=== PATIENT | female | born 1955 | race Caucasian/White ===

== ENCOUNTER → 2018-12-22 | Outpatient (CLI) | payer OTHER ==
[~2018-12-22] MED LIST: ALBU90I INH; ARIP10 PO; CEPH500 PO; CLIN150 PO; CONEST1.25 PO; CYCL10 PO; HYDACE5 PO; LEVSOD100 PO; MUPI2TC TOP; MUPI2TO TOP; NAPR500 PO; RXCLIN PO; SERT100 PO
== END | disposition home or self-care (01) ==
LOC: LAB EV 16:15 → LAB SHORT 16:15
DX: T14.8XXA Other injury of unspecified body region, initial encounter (principal)
CPT/HCPCS: 87081

== ENCOUNTER → 2021-12-22 | Outpatient (CLI) | payer OTHER ==
[2021-12-22 10:55] LABS: BASOPHILS ABSOLUTE AUTO 0.05 K/mm3 (0.00-0.23); BASOPHILS PERCENT AUTO 1 % (0-2); EOSINOPHILS ABSOLUTE AUTO 0.12 K/mm3 (0.00-0.68); EOSINOPHILS PERCENT AUTO 2 % (0-6); IMMATURE GRAN ABSOLUTE AUTO 0.03 K/mm3 (0.00-0.10); IMMATURE GRAN PERCENT AUTO 0 % (0-1); LYMPHOCYTES ABSOLUTE AUTO 2.36 K/mm3 (0.84-5.20); LYMPHOCYTES PERCENT AUTO 29 % (21-46); MONOCYTES ABSOLUTE AUTO 0.67 K/mm3 (0.16-1.47); MONOCYTES PERCENT AUTO 8 % (4-13); Mean Corpuscular HGB 27.7 pg (26.0-34.0); Mean Corpuscular HGB Conc 34.1 g/dL (31.5-36.5); Mean Corpuscular Volume 81 fL (80-100); Mean Platelet Volume 10.2 fL (9.1-12.4); NEUTROPHILS ABSOLUTE AUTO 5.04 K/mm3 (1.96-9.15); NEUTROPHILS PERCENT AUTO 61 % (41-73); Platelet Count 358 K/mm3 (150-400); RDW Coefficient Variation 13.6 % (11.7-14.2); RDW Standard Deviation 39.5 fL (35.1-46.3); Red Blood Cell Count 5.41 M/mm3 (3.80-5.20); White Blood Cell Count 8.27 K/mm3 (4.00-11.30)
[2021-12-22 11:32] LABS: Albumin, Blood 3.1 g/dL (3.4-5.0); Albumin/Globulin Ratio 0.7 (0.8-1.8); Bilirubin, Total 0.2 mg/dL (0.1-1.0); Bun/Creatinine Ratio 21.7 (12.0-20.0); Calcium, Blood 9.3 mg/dL (8.5-10.1); Creatinine, Blood 0.92 mg/dL (0.40-1.00); Globulin, Blood 4.2 g/dL (2.2-4.0); Potassium, Blood 3.7 mmol/L (3.5-5.5); Total Protein, Blood 7.3 g/dL (6.4-8.2)
== END | disposition home or self-care (01) ==
LOC: LAB 10:51 → LAB SHORT 10:51
PROVIDERS: Physician Assistant Medical
DX: R10.31 Right lower quadrant pain (principal)
CPT/HCPCS: 80053; 85025

== ENCOUNTER 2023-04-16 18:40 | Emergency (ER) | payer MEDICARE, OTHER ==
[~2023-04-16] VITALS: Ht 170.2 cm; Wt 81.7 kg
[2023-04-16 19:48] LABS: BASOPHILS ABSOLUTE AUTO 0.04 K/mm3 (0.00-0.23); BASOPHILS PERCENT AUTO 1 % (0-2); EOSINOPHILS ABSOLUTE AUTO 0.07 K/mm3 (0.00-0.68); EOSINOPHILS PERCENT AUTO 1 % (0-6); IMMATURE GRAN ABSOLUTE AUTO 0.05 K/mm3 (0.00-0.10); IMMATURE GRAN PERCENT AUTO 1 % (0-1); LYMPHOCYTES ABSOLUTE AUTO 1.77 K/mm3 (0.84-5.20); LYMPHOCYTES PERCENT AUTO 20 % (21-46); MONOCYTES ABSOLUTE AUTO 0.59 K/mm3 (0.16-1.47); MONOCYTES PERCENT AUTO 7 % (4-13); Mean Corpuscular HGB 27.8 pg (26.0-34.0); Mean Corpuscular HGB Conc 34.2 g/dL (31.5-36.5); Mean Corpuscular Volume 81 fL (80-100); Mean Platelet Volume 10.9 fL (9.1-12.4); NEUTROPHILS ABSOLUTE AUTO 6.31 K/mm3 (1.96-9.15); NEUTROPHILS PERCENT AUTO 71 % (41-73); Platelet Count 370 K/mm3 (150-400); RDW Coefficient Variation 13.2 % (11.7-14.2); RDW Standard Deviation 38.1 fL (35.1-46.3); Red Blood Cell Count 4.68 M/mm3 (3.80-5.20); White Blood Cell Count 8.83 K/mm3 (4.00-11.30)
[2023-04-16 20:07] LABS: Albumin, Blood 3.3 g/dL (3.4-5.0); Albumin/Globulin Ratio 0.8 (0.8-1.8); Bilirubin, Total 0.2 mg/dL (0.1-1.0); Bun/Creatinine Ratio 21.5 (12.0-20.0); Calcium, Blood 9.5 mg/dL (8.5-10.1); Creatinine, Blood 1.21 mg/dL (0.40-1.00); Globulin, Blood 4.1 g/dL (2.2-4.0); Potassium, Blood 4.2 mmol/L (3.5-5.5); Total Protein, Blood 7.4 g/dL (6.4-8.2)
[2023-04-16 20:31] LABS: International Normalized Ratio 0.94; Prothrombin Time Results 9.9 Sec (9.7-11.5)
[2023-04-16 21:14] VITALS: BP 184/113
[2023-04-16] MEDS ORDERED: Clopidogrel Bisulfate 75 MG Tab PO ONE (21:25)
[2023-04-16] MEDS ORDERED: Aspirin 325 MG Tab PO ONE (21:25)
== END 2023-04-16 21:46 | disposition left against medical advice (07) ==
LOC: ER 18:40
PROVIDERS: Student in an Organized Health Care Education/Training Program
DX: I63.9 Cerebral infarction, unspecified (principal); E11.9 Type 2 diabetes mellitus without complications; Z53.29 Procedure and treatment not carried out because of patient's decision for other reasons; F17.200 Nicotine dependence, unspecified, uncomplicated
CPT/HCPCS: 70450; 70496; 70498; 80053; 85025; 85610; 85730; 93005; 93010; 99284-25; A9270; Q9967

== ENCOUNTER 2023-04-17 09:17 | Emergency (ER) | payer MEDICARE, OTHER ==
[~2023-04-17] VITALS: Ht 170.2 cm; Wt 86.2 kg
[2023-04-17 09:54] VITALS: BP 171/89
[2023-04-17 10:27] LABS: BASOPHILS ABSOLUTE AUTO 0.03 K/mm3 (0.00-0.23); BASOPHILS PERCENT AUTO 0 % (0-2); EOSINOPHILS ABSOLUTE AUTO 0.09 K/mm3 (0.00-0.68); EOSINOPHILS PERCENT AUTO 1 % (0-6); Hematocrit 37.1 % (33.0-51.0); Hemoglobin 12.5 g/dL (11.5-16.0); IMMATURE GRAN ABSOLUTE AUTO 0.03 K/mm3 (0.00-0.10); IMMATURE GRAN PERCENT AUTO 0 % (0-1); LYMPHOCYTES PERCENT AUTO 15 % (21-46); MONOCYTES ABSOLUTE AUTO 0.44 K/mm3 (0.16-1.47); MONOCYTES PERCENT AUTO 4 % (4-13); Mean Corpuscular HGB 27.5 pg (26.0-34.0); Mean Corpuscular HGB Conc 33.7 g/dL (31.5-36.5); Mean Corpuscular Volume 82 fL (80-100); Mean Platelet Volume 11.1 fL (9.1-12.4); NEUTROPHILS ABSOLUTE AUTO 8.19 K/mm3 (1.96-9.15); NEUTROPHILS PERCENT AUTO 80 % (41-73); Platelet Count 347 K/mm3 (150-400); RDW Coefficient Variation 13.2 % (11.7-14.2); RDW Standard Deviation 38.5 fL (35.1-46.3); Red Blood Cell Count 4.54 M/mm3 (3.80-5.20); White Blood Cell Count 10.28 K/mm3 (4.00-11.30)
[2023-04-17 11:15] LABS: Albumin, Blood 3.2 g/dL (3.4-5.0); Albumin/Globulin Ratio 0.8 (0.8-1.8); Beta-hydroxybutyrate 1.7 mg/dL (0.2-2.8); Bilirubin, Total 0.3 mg/dL (0.1-1.0); Bun/Creatinine Ratio 28.8 (12.0-20.0); Calcium, Blood 9.4 mg/dL (8.5-10.1); Creatinine, Blood 0.77 mg/dL (0.40-1.00); Potassium, Blood 3.7 mmol/L (3.5-5.5); Total Protein, Blood 7.2 g/dL (6.4-8.2)
[2023-04-17 11:43] LABS: Source, Urine Clean Catch
[2023-04-17 11:46] LABS: Appearance, Urine Hazy (Clear); Bilirubin, Urine Neg (Neg); Blood, Urine 3+ (Neg); Color, Urine Yellow (P-Yellow); Glucose Qualitative, Urine 4+ (Neg); Ketones, Urine Neg (Neg); Leukocyte Esterase, Urine 2+ (Neg); Nitrite, Urine Neg (Neg); Protein, Urine 4+ (Neg); Urobilinogen, Urine NORM (Normal)
[2023-04-17 12:03] LABS: Bacteria Few /hpf; Squamous Epithelial Cells Few /hpf (Few)
== END 2023-04-17 12:37 | disposition left against medical advice (07) ==
LOC: ER 09:17
PROVIDERS: Physician Assistant
DX: I63.9 Cerebral infarction, unspecified (principal); R53.1 Weakness; Z88.2 Allergy status to sulfonamides; Z88.1 Allergy status to other antibiotic agents; E03.9 Hypothyroidism, unspecified; E78.5 Hyperlipidemia, unspecified; J45.909 Unspecified asthma, uncomplicated; F17.210 Nicotine dependence, cigarettes, uncomplicated
CPT/HCPCS: 80053; 81001; 82010; 83690; 85025; 87086; 93005; 93010; 99285-25

== ENCOUNTER → 2024-04-02 | Outpatient (CLI) | payer OTHER | LOC: LAB SHORT 13:32 → LAB 13:32 | DX: R82.998 Other abnormal findings in urine (principal) | CPT/HCPCS: 87086 ==

== ENCOUNTER 2024-12-01 06:03 | Day surgery (SDC) | payer OTHER ==
[2024-12-01] VITALS (13 sets, daily range): BP systolic 109–161; BP diastolic 60–89
[~2024-12-01] VITALS: Ht 170.2 cm; Wt 82.9 kg
[~2024-12-01 06:03] MED LIST changes: +ALBU90OI INH; +Amlodipine Bes2.5 MG PO; +INSULANPEN SC; +JARDIANCE10 MG PO; +METF500 PO; +SPIRIVA RESPIMAT4 G2 INH; +TRADJENTA5 MG PO; +ZESTRIL40 M1 PO
[2024-12-01] MEDS ORDERED: CeFAZolin Sodium 2,000 MG in NS 100 ML IV SCH ×2 (06:20→16:00)
[2024-12-01] MEDS ORDERED: Tranexamic Acid 100 ML IV SCH (06:20)
[2024-12-01] MEDS ORDERED: Ropivacaine 0.5% HCl/Pf 123.125 MG,EPINEPHrine HCL 0.25 MG,Ketorolac Tromethamine 15 MG... INFIL SCH (06:20)
[2024-12-01] MEDS ORDERED: Chlorhexidine Mouth Care 15 ML UDC MT SCH (06:20)
[2024-12-01] MEDS ORDERED: Magnesium Sulfate 500 MG / ML 2ML Vial ONE (06:54)
[2024-12-01] MEDS ORDERED: Metoclopramide HCl 5MG / ML 2ML Vial ONE (06:55)
[2024-12-01] MEDS ORDERED: Ondansetron HCl 2 MG / ML 2ML Vial ONE (06:55)
[2024-12-01] MEDS ORDERED: HYDROmorphone HCl/Pf 1MG SYR ONE (07:03)
[2024-12-01] MEDS ORDERED: Midazolam HCl 1MG / ML 2ML Vial ONE (07:04)
--- NOTE | 2024-12-01 07:13 | NUR ---
Ambulatory in Day Surgery WITH STEADY GAIT. History, Chart, Medications and Allergies reviewed before start of procedure. Pre-Op teaching done. Pt verbalizes understanding. Patient States Post-Procedure ride home has been arranged WITH SPOUSE. ALL BELONGINGS PLACED UNDER GURN. PT REPORTS HAVING NO DENUTES, NONE IN MOUTH IN DAY SURGERY.
[2024-12-01] MEDS ORDERED: Metoclopramide HCl 5MG / ML 2ML Vial IV PRN ×2 (08:05→09:25)
[2024-12-01] MEDS ORDERED: Ondansetron HCl 2 MG / ML 2ML Vial IV PRN ×2 (08:10→09:30)
[2024-12-01] MEDS ORDERED: HYDROmorphone HCl/Pf 1MG SYR IV PRN ×2 (08:10→09:35)
[2024-12-01] MEDS ORDERED: FentaNYL Citrate 50 MCG/ML 2 ML Injection IV PRN ×2 (08:10)
[2024-12-01] MEDS ORDERED: Morphine Sulfate 4 MG/1 ML Injection IV PRN (08:20)
[2024-12-01] MEDS ORDERED: Prochlorperazine Edisylate 10 mg Vial IV PRN (09:25)
[2024-12-01] MEDS ORDERED: FLU VACC TS2025(65UP)/MF59C/PF 45 MCG/0.5 ML SYRINGE IM SCH (09:30)
[2024-12-01] MEDS ORDERED: Magnesium Hydroxide Conc 10 ML UDC PO PRN (09:30)
--- NOTE | 2024-12-01 10:10 | NUR ---
PT ARRIVED TO RM [id number] IN BED A&OX4. LCA. HRR. BTX4. DRESSING TO R ANTERIOR HIP CDI. PT NUMB FROM HIPS DOWN. DENIES PAIN OR N/V. ORIENTED TO USE OF CALL LIGHT. PROVIDED WATER AND SNACKS. CALL LIGHT IN REACH.
[2024-12-01] MEDS ORDERED: Albuterol HFA200 ACT/6.7 GM INH INH PRN (10:20)
[2024-12-01] MEDS ORDERED: Tiotropium Bromide 2.5 MCG/ACT MIST INHAL (10 ACT/4 GM) INH SCH (10:20)
[2024-12-01] MEDS ORDERED: Insulin Regular 100 UNIT/ML 10ML Vial SC SCH (11:30)
--- NOTE | 2024-12-01 11:44 | NUR ---
RACHID Olivo ASSUMING CARE OF PATIENT.
[2024-12-01] MEDS ORDERED: Ketorolac Tromethamine 15mg Vial IV SCH (12:00)
--- NOTE | 2024-12-01 14:03 | NUR ---
assumed care of pt from debbie anton rn
[2024-12-01] MEDS ORDERED: ELIQUIS2.5 MG PO (15:20)
--- NOTE | 2024-12-01 15:39 | NUR ---
DISCHARGED PT AMBULATED, CLEARED THERAPY, VOIDED, TOLERATED PO AND PAIN MANAGED. REVIEWED DC INSTRUCTIONS W/PT; VERBALIZED UNDERSTANDING. PT LEFT UNIT IN WC W/POSSESSIONS, DC PAPERWORK AND POLAR PACK IN HAND TO RIDE WAITING OUTSIDE.
[2024-12-01] MEDS ORDERED: Insulin Glargine 100 Unit/ML 3 ML SYR SC SCH (21:00)
[2024-12-02] MEDS ORDERED: MetFORMIN HCl 500 mg PO SCH (09:00)
[2024-12-02] MEDS ORDERED: Saxagliptin HCl 2.5 MG TABLET PO SCH (09:00)
== END 2024-12-01 15:42 | disposition home or self-care (01) ==
LOC: ORSCMMR 06:03 → ORD 07:30 → ORSCMMR 07:30 → SURS 10:01 → ORSCMMR 15:42
PROVIDERS: Orthopaedic Surgery
PROC: 0SR90JA Replacement of Right Hip Joint with Synthetic Substitute, Uncemented, Open Approach (ICD-10-PCS; principal; 2024-12-01 07:30)
DX: M16.11 Unilateral primary osteoarthritis, right hip (principal); I10 Essential (primary) hypertension; E11.9 Type 2 diabetes mellitus without complications; I25.10 Atherosclerotic heart disease of native coronary artery without angina pectoris; Z86.73 Personal history of transient ischemic attack (TIA), and cerebral infarction without residual deficits; Z79.84 Long term (current) use of oral hypoglycemic drugs; Z79.4 Long term (current) use of insulin; Z79.899 Other long term (current) drug therapy; J45.909 Unspecified asthma, uncomplicated
CPT/HCPCS: 72170; 82947; 97110; 97116; 97162; 97530; A9270; C1776; J0166; J0690; J0735; J1171; J1815; J1885; J2250; J2405; J2704; J2765; J2795; J3475; J7120

== ENCOUNTER → 2025-02-23 | Outpatient (CLI) | payer OTHER ==
[~2025-02-23] MED LIST changes: +ELIQUIS2.5 MG PO
== END | disposition home or self-care (01) ==
LOC: LAB SHORT 11:02 → LAB 11:02
DX: R30.0 Dysuria (principal)
CPT/HCPCS: 87086